=== PATIENT | female | born 1975 | race Caucasian/White ===

== ENCOUNTER → 2017-12-07 | Outpatient (CLI) | payer OTHER ==
[2017-12-07] MEDS: GADOBUTROL 7.5 MMOL/7.5 ML VIAL IV (10:22)
== END | disposition home or self-care (01) ==
LOC: KCIC MRI 09:06
DX: M94.262 Chondromalacia, left knee (principal)
CPT/HCPCS: 73723; A9585

== ENCOUNTER → 2020-07-15 | Outpatient (CLI) | payer OTHER ==
[2015-10-29 12:33] VITALS: BP 101/58
[~2020-07-15] MED LIST: ASPIRIN; BUTALBITAL; ESTR0.62 PO; MULT-208 PO; ONDA4TAB10 SL; OXYC1TAB15 PO; TOPI200T25 PO; premarin
== END ==
LOC: LAB 15:33
PROVIDERS: ATTEND Internal Medicine Gastroenterology
DX: Z01.812 Encounter for preprocedural laboratory examination (principal); Z20.822 Contact with and (suspected) exposure to COVID-19
CPT/HCPCS: U0003

== ENCOUNTER → 2020-07-19 | Day surgery (SDC) | payer OTHER ==
[~2020-07-19] MED LIST changes: +BISACODYL 10 MG SUPP.RECT. PR ONE; +IV RINGERS,LACTATED 1000ML 1,000 ML IV SCH; +ONDANSETRON PF 4 MG/2 ML VIAL. ONE; +PROCHLORPERAZINE 10 MG/2 ML VIAL. IVP PRN; +PROPOFOL 10 MG/ML (20ML) VIAL. IV ONE
--- NOTE | 2020-07-19 13:27 | PDOC4 ---
PROCEDURE Procedure Colonoscopy with biopsy. Indication: history of polyps Meds: per anesthesia Findings: NOHEMI normal. --'Scope advanced to cecum. Prep adequate. Mucosa normal. One 2mm polyp, proximal ascending biopsied off. Otherwise normal exam. Christine. well. IMP: One small polyp. REC: Await path. Resume meds and diet. F/u office 2 weeks. Repeat colonoscopy pending path. LISA CHILDRESS MD Jul 19, 2020 13:27
--- NOTE | 2020-07-19 13:54 | NUR ---
pt restless, painful. stat KUB ordered. pt given iv zofran and rectal biscodyl.
--- NOTE | 2020-07-19 14:11 | RAD ---
INDICATION: Reason: post colonoscopy abdominal pain / Spl. Instructions: / History: COMPARISON: August 2015 IMPRESSION: Abdomen: Single view obtained. Only a portion of the abdomen is included in the [id number] but the left side of the abdomen not evaluated. Air-filled dilatation throughout the large and small bowel. Given the patient's Procedure this could be related to the procedure although ileus can have this kieran earance. Cannot evaluate for free air on this supine radiograph. Would consider obtaining a complete free air series including upright view of the chest to further evaluate for free air given this limit ation. Electronically signed by: Marin Jung MD (07/19/2020 2:08 PM) [id number]
[2020-07-19 14:14] VITALS: BP 130/64
--- NOTE | 2020-07-22 18:08 | PATHOLOGY ---
[facility] Accession Number: [id number] . 01 Material submitted: . gastrointestinal site - PROXIMAL ASCENDING POLYP. Modifiers: proximal, ascending . 01 Clinical history: . COLONOSCOPY . 02 Diagnosis: Colon biopsy, proximal ascending colon polyp: - Tubular adenoma. (JPM:helen; 07/22/2020) QMS 07/22/2020 1413 Local . 02 Comment: There is no high grade dysplasia or evidence of malignancy. (JPM:helen; 07/22/2020) . 02 Electronically signed: . Prashant Santoyo MD, Pathologist NPI- [id number] . 01 Gross description: . The specimen is received in formalin, labeled "Carine Grider, proximal ascending polyp" and consists of a segment of russo tissue measuring 0.7 x 0.2 cm which is entirely submitted in A1. (SDY; 07/21/2020) SYU/SYU 07/21/2020 1102 Local . 02 Pathologist provided ICD-10: D12.2 . 02 CPT . 021604 Specimen Comment: A courtesy copy of this report has been sent to [phone] Specimen Comment: Report sent to / Performed at: 01 [facility] [address], [place], [place] [id number] MD Finesse Burnett MD Phone: [phone] Performed at: 02 [facility] [address], [place] [id number] MD Prashant Santoyo MD Phone: [phone]
== END | disposition home or self-care (01) ==
LOC: SURG 11:53
PROVIDERS: ATTEND Internal Medicine Gastroenterology
DX: Z12.11 Encounter for screening for malignant neoplasm of colon (principal); D12.2 Benign neoplasm of ascending colon; K63.89 Other specified diseases of intestine; F17.210 Nicotine dependence, cigarettes, uncomplicated; Z86.010 Personal history of colon polyps; Z90.49 Acquired absence of other specified parts of digestive tract; Z90.710 Acquired absence of both cervix and uterus; Z98.890 Other specified postprocedural states; Z79.899 Other long term (current) drug therapy; Z72.89 Other problems related to lifestyle; Z88.5 Allergy status to narcotic agent; Z88.8 Allergy status to other drugs, medicaments and biological substances; Z91.040 Latex allergy status
CPT/HCPCS: 45380; 74018; 88305; J2405; J2704

== ENCOUNTER 2020-07-21 18:52 | Emergency (ER) | payer OTHER ==
[~2020-07-21] VITALS: Ht 165.1 cm; Wt 67.0 kg
[~2020-07-21 18:52] MED LIST changes: -BISACODYL 10 MG SUPP.RECT. PR ONE; -IV RINGERS,LACTATED 1000ML 1,000 ML IV SCH; -ONDANSETRON PF 4 MG/2 ML VIAL. ONE; -PROCHLORPERAZINE 10 MG/2 ML VIAL. IVP PRN; -PROPOFOL 10 MG/ML (20ML) VIAL. IV ONE
--- NOTE | 2020-07-21 19:21 | PHYS DOC ---
Past Medical History Past Medical History: Migraines Past Surgical History: Cholecystectomy, Hysterectomy Smoking Status: Current Every Day Smoker Alcohol Use: Occasionally Drug Use: None General Adult EDM: Chief Complaint: FLANK PAIN HPI: HPI: Patient is a 45 year old female with a past medical history of migraine headaches anxiety and currently on hormone replacement status post hysterectomy presents with a chief complaint of left sided flank left lower lung pain. Patient states she had a routine colonoscopy performed here at this hospital on Sunday. Postoperatively patient states she awoke with chest discomfort and left-sided pain. Patient states she feels short of breath. During her postoperative stay a chest x-ray was performed she was told today no acute abnormalities she was treated with a laxative to alleviate gas and then discharged home. Patient states since discharge pain has actually increased. Patient states the pain is in the left lower side at times she feels as if she cannot take a deep breath and feels short of breath. Patient currently denies any chest pain she has not had any nausea or vomiting. Patient did states she is constipated has had only a small stool. On exam patient is on room air her oxygen saturation is 98%. She ambulated into the ER with a normal steady gait heart rate is in the 60s. Review of Systems: Review of Systems: Constitutional: Denies fever or chills. [] Eyes: Denies change in visual acuity. [] HENT: Denies nasal congestion or sore throat. [] Respiratory: Denies cough or shortness of breath. [] Cardiovascular: Denies chest pain or edema. [] GI: Denies abdominal pain, nausea, vomiting, bloody stools or diarrhea. [] : Denies dysuria. [] Musculoskeletal: Denies back pain or joint pain. [] Integument: Denies rash. [] Neurologic: Denies headache, focal weakness or sensory changes. [] Endocrine: Denies polyuria or polydipsia. [] Lymphatic: Denies swollen glands. [] Psychiatric: Denies depression or anxiety. [] Heart Score: Risk Factors: Risk Factors: DM, Current or recent (<one month) smoker, HTN, HLP, family history of CAD, obesity. Risk Scores: Score 0 - 3: 2.5% MACE over next 6 weeks - Discharge Home Score 4 - 6: 20.3% MACE over next 6 weeks - Admit for Clinical Observation Score 7 - 10: 72.7% MACE over next 6 weeks - Early Invasive Strategies Allergies: Allergies: Allergies Coded Allergies Type Severity Reaction Last Updated Verified gluten Allergy Intermediate NAUSEA AND RASH 07/19/20 Yes latex Allergy Intermediate Rash 07/19/20 Yes codeine Adverse Reaction Intermediate Nausea and Vomiting 07/19/20 Yes Physical Exam: PE: Constitutional: Well developed, well nourished, no acute distress, non-toxic appearance. [] HENT: Normocephalic, atraumatic, bilateral external ears normal, oropharynx moist, no oral exudates, nose normal. [] Eyes: PERRLA, EOMI, conjunctiva normal, no discharge. [] Neck: Normal range of motion, no tenderness, supple, no stridor. [] Cardiovascular:Heart rate regular rhythm, no murmur [] Lungs & Thorax: Bilateral breath sounds clear to auscultation [] Abdomen: Bowel sounds normal, soft, no tenderness, no masses, no pulsatile masses. [] Skin: Warm, dry, no erythema, no rash. [] Back: No tenderness, no CVA tenderness. [] Extremities: No tenderness, no cyanosis, no clubbing, ROM intact, no edema. [] Neurologic: Alert and oriented X 3, normal motor function, normal sensory function, no focal deficits noted. [] Psychologic: Affect normal, judgement normal, mood normal. [] EKG: EKG: [] Radiology/Procedures: Radiology/Procedures: []IMPRESSION: Abdomen: Single view obtained. Surgical clips right upper quadrant. Air scattered throughout the large and small bowel in a nonobstructive pattern. Definite free air is not seen. CHEST: Single view obtained. Cardiac silhouette is upper limits of normal in size but likely exaggerated by portable technique. No focal airspace consolidation or pulmonary edema. No pneumothorax is seen. Electronically signed by: Marin Jung MD (07/21/2020 8:18 PM) [id number] Course & Med Decision Making: Course & Med Decision Making Pertinent Labs and Imaging studies reviewed. (See chart for details) [] Patient was evaluated for chief complaint. Work-up consisted of laboratory analysis and radiologic imaging. Results reviewed and discussed with patient. KUB chest x-ray no acute abnormalities no perforation no pneumothorax no infiltrate radiologist comments about air throughout the colon. D-dimer within normal limits urine without infection or blood. Patient declined any pain medications. When discussing all labs discussed performing a CT abdomen pelvis to get a better look at patient's flank and abdominal anatomy. Patient initially agreed but then later declined. Patient was discharged home with instructions to follow-up with her primary care physician. Itz Disclaimer: Itz Disclaimer: This electronic medical record was generated, in whole or in part, using a voice recognition dictation system. Departure Departure Impression: Primary Impression: Abdominal pain Additional Impressions: Dyspnea Post-operative pain Disposition: 01 DC HOME SELF CARE/HOMELESS Condition: STABLE Referrals: ELIZABETH CAMACHO MD (PCP) Patient Instructions: Abdominal Pain (Nonspecific), Flank Pain, Shortness of Breath MICHELLE SOLITARIO I DO Jul 21, 2020 19:21
[2020-07-21 19:33] LABS: BASO % 0 % (0-3); EOS # 0.1 x10^3/uL (0.0-0.7); EOS % 2 % (0-3); HEMATOCRIT 41.6 % (36.0-47.0); HEMOGLOBIN 14.2 g/dL (12.0-15.5); LYMPH # 1.8 x10^3/uL (1.0-4.8); LYMPH % 26 % (24-48); MEAN CORPUSCULAR HEMOGLOBIN 32 pg (25-35); MEAN CORPUSCULAR HGB CONC 34 g/dL (31-37); MEAN CORPUSCULAR VOLUME 93 fL (79-100); MONO # 0.6 x10^3/uL (0.0-1.1); MONO % 9 % (0-9); NEUT # 4.2 x10^3/uL (1.8-7.7); NEUT % 63 % (31-73); PLATELET COUNT 224 x10^3/uL (140-400); RED BLOOD COUNT 4.47 x10^6/uL (3.50-5.40); RED CELL DISTRIBUTION WIDTH 12.8 % (11.5-14.5); WHITE BLOOD COUNT 6.7 x10^3/uL (4.0-11.0)
[2020-07-21 19:34] LABS: BILIRUBIN,URINE NEGATIVE (NEG); CLARITY,URINE CLEAR; COLOR,URINE YELLOW; NITRITE,URINE NEGATIVE (NEG); PH,URINE 7.5 (<5.0-8.0); PROTEIN,URINE NEGATIVE (NEG-TRACE); UROBILINOGEN,URINE 0.2 mg/dL (0.2 mg/dL)
[2020-07-21 19:39] LABS: CALCIUM 8.9 mg/dL (8.5-10.1); CREATININE 0.6 mg/dL (0.6-1.0); GFR 107.6; POTASSIUM 3.2 mmol/L (3.5-5.1)
[2020-07-21 19:41] LABS: BACTERIA,URINE FEW /HPF (0-FEW); RBC,URINE 0 /HPF (0-2); WBC,URINE 0 /HPF (0-4)
[2020-07-21 19:44] LABS: ALBUMIN 4.1 g/dL (3.4-5.0); ALBUMIN/GLOBULIN RATIO 1.2 (1.0-1.7); TOTAL BILIRUBIN 0.5 mg/dL (0.2-1.0); TOTAL PROTEIN 7.4 g/dL (6.4-8.2)
--- NOTE | 2020-07-21 19:56 | RAD ---
INDICATION: Reason: Left side flank pain, post colonoscopy / Spl. Instructions: / History: COMPARISON: July 19, 2020 IMPRESSION: Abdomen: Single view obtained. Air scattered throughout the large and small bowel appears decreased f rom prior examination in a grossly nonobstructive pattern. Cannot assess for free air on a supine rad iograph. Metallic density structure projecting the left of midline overlying the L5 level. Could be s econdary to an object outside the patient unless there is history of ingested metallic structure. Deg enerative changes of the hips and spine. Electronically signed by: Marin Jung MD (07/21/2020 7:54 PM) [id number]
--- NOTE | 2020-07-21 20:21 | RAD ---
INDICATION: Reason: flank pain abd pain post surgical procedure / Spl. Instructions: / History: COMPARISON: Earlier same day IMPRESSION: Abdomen: Single view obtained. Surgical clips right upper quadrant. Air scattered throughout the larg e and small bowel in a nonobstructive pattern. Definite free air is not seen. CHEST: Single view obtained. Cardiac silhouette is upper limits of normal in size but likely exaggera bairon by portable technique. No focal airspace consolidation or pulmonary edema. No pneumothorax is see n. Electronically signed by: Marin Jung MD (07/21/2020 8:18 PM) [id number]
[2020-07-21 20:36] VITALS: BP 110/69
== END 2020-07-21 21:51 | disposition home or self-care (01) ==
LOC: ER 18:52
DX: R10.9 Unspecified abdominal pain (principal); R06.02 Shortness of breath; G43.909 Migraine, unspecified, not intractable, without status migrainosus; G89.18 Other acute postprocedural pain; R07.89 Other chest pain; F17.200 Nicotine dependence, unspecified, uncomplicated; Z90.49 Acquired absence of other specified parts of digestive tract; Z90.710 Acquired absence of both cervix and uterus
CPT/HCPCS: 36415; 71045; 74018; 80053; 81001; 81025; 83690; 85025; 85379; 99284

== ENCOUNTER → 2020-12-29 | Outpatient (CLI) | payer OTHER ==
--- NOTE | 2020-12-29 14:20 | RAD ---
EXAM: Bilateral digital diagnostic mammogram with tomosynthesis; left breast sonogram. HISTORY: 45-year-old female presents with left breast and axillary pain. TECHNIQUE: Full-field digital craniocaudal and mediolateral oblique 2D and 3D tomosynthesis images of both breasts are obtained for evaluation. Computer aided detection was applied. Sonographic imaging of the left breast and axilla targeted to sites of reported pain was also performed. COMPARISON: 02/20/2020 BREAST PARENCHYMAL DENSITY: Level C - Heterogeneously dense. FINDINGS: There is no new suspicious mass, microcalcification or region of architectural distortion. There are stable areas of asymmetry and nodularity within both breasts. Sonographic imaging of the left breast targeted to the site of reported pain within the axillary tail and the left axilla was also performed. There is no suspicious sonographic finding. There is a small benign-appearing axillary lymph node. IMPRESSION: 1. No suspicious mammographic or sonographic finding. Continued clinical follow-up of palpable abnorm alities is recommended. Negative imaging should not preclude the decision to biopsy a palpable abnorm ality if there is clinical concern. 2. BI-RADS Category 2: Benign finding(s). RECOMMENDATION: Annual mammography is recommended. If your mammogram demonstrates that you have dense breast tissue, which could hide abnormalities, and if you have other risk factors for breast cancer that have been identified, you might benefit from s upplemental screening tests that may be suggested by your ordering physician. Dense breast tissue, i n and of itself, is a relatively common condition. This information is not provided to cause undue c oncern, but rather to raise your awareness and to promote discussion with your physician regarding th e presence of other risk factors, in addition to dense breast tissue. A report of your mammography re sults will be sent to you and your physician. You should contact your physician if you have any ques tions or concerns regarding this report. Mammography is a sensitive method for finding small breast cancers, but it does not detect them all a nd is not a substitute for careful clinical examination. A negative mammogram does not negate a clin ically suspicious finding and should not result in delay in biopsying a clinically suspicious abnorma lity. PQRS compliance statement - Patient information was entered into a reminder system with a target due date for the next mammogram. "Our facility is accredited by the [employer] Mammography [employer]." Electronically signed by: Maryjane Pablo MD (12/29/2020 2:18 PM) [id number]
== END ==
LOC: MAMMO 13:27
PROVIDERS: ATTEND Nurse Practitioner Family
DX: N63.20 Unspecified lump in the left breast, unspecified quadrant (principal); N64.4 Mastodynia
CPT/HCPCS: 76641; 77066